=== PATIENT | male | born 1985 | race Two or more races ===

== ENCOUNTER 2020-06-19 16:38 | Inpatient (IN) | payer MEDICAID ==
--- NOTE | 2020-06-19 16:55 | EDM.PDOC ---
ED HPI GENERAL MEDICAL PROBLEM - General Chief Complaint: Cardiovascular Problem Stated Complaint: PASSED OUT Time Seen by Provider: 06/19/20 16:40 Source of Information: Reports: Patient History Limitations: Reports: No Limitations - History of Present Illness INITIAL COMMENTS - FREE TEXT/NARRATIVE: HISTORY AND PHYSICAL: History of present illness: Patient is a 35-year-old male who presents to the emergency room with complaints of syncope prior to arrival. Over the past 2 to 3 days he has had fever and chills. Prior to arrival he felt the sensation of needing to have a bowel movement. He states he felt dizzy and diaphoretic while sitting on the toilet, he asked his to grab him a towel. She states she witnessed him have a syncopal event while sitting on the toilet for 2 to 3 seconds. He did not fall off the toilet or hit his head. He states he had an episode of diarrhea. His called the ambulance to have him evaluated. He currently is asymptomatic but states he feels chilled. Patient denies any headache, change in vision, chest pain, back pain, shortness of breath, abdominal pain, nausea, vomiting, constipation or dysuria. Has not noted any blood in urine or stool. Patient has been eating and drinking appropriately. Review of systems: As per history of present illness and below otherwise all systems reviewed and negative. Past medical history: As per history of present illness and as reviewed below otherwise noncontributory. Surgical history: As per history of present illness and as reviewed below otherwise noncontributory. Social history: See social history for further information Family history: As per history of present illness and as reviewed below otherwise noncontributory. Physical exam: General: Well developed and well nourished. Alert and orientated x 3. Nontoxic in appearance and in no acute distress. Vital signs are stable and have been reviewed by me. Nursing notes were reviewed. HEENT: Atraumatic, normocephalic, pupils equal and reactive bilaterally, negative for conjunctival pallor or scleral icterus, mucous membranes moist, TMs normal bilaterally, throat clear, neck supple, nontender, trachea midline. No drooling or trismus noted. No meningeal signs. No hot potato voice noted. Lungs: Clear to auscultation, breath sounds equal bilaterally, chest nontender. Normal work of breathing, no accessory muscles used. Heart: S1S2, regular rate and rhythm without overt murmur Abdomen: Soft, nondistended, nontender. Negative for masses or hepatosplenomegaly. Negative for costovertebral tenderness. Pelvis: Stable nontender. Skin: Shirt is wet from previously being diaphoretic. Skin is cool, intact without any lesions or rashes noted. Hematologic: No petechiae or purpra. Mucosa appropriate color and normal nail bed color and refill. Extremities: Atraumatic, moves all extremities per self without difficulty or deficits, negative for cords or calf pain. Neurovascular unremarkable. Neuro: Awake, alert, oriented. Cranial nerves II through XII unremarkable. Cerebellum unremarkable. Motor and sensory unremarkable throughout. Exam nonfocal. Psychiatric: Mood and affect are appropriate. Normal thought process. Answering questions appropriately. Notes: While patient has been here in the emergency room he has fluctuations of feeling okay and dizziness. He did get up to try to use the bathroom and felt near syncopal again, he was assisted to the bed. Patient is COVID positive. Chest x-ray and head CT are unremarkable. We discussed if he felt well enough to be discharged home, he states he feels near syncopal when he gets up to move around and does not feel well enough to be discharged home. Dr Espana, hospitalist on- call, was informed of this patient and is agreeable to keeping him for further care and management. Patient is stable in the emergency room. We will continue to monitor. Diagnostics: CBC, CMP, COVID, UA, Head CT, Therapeutics: IV fluids, Meclizine, Tylenol Impression: Syncope COVID-19 Plan: Observation admission with telemetry Definitive disposition and diagnosis as appropriate pending reevaluation and review of above. - Related Data Allergies Allergy/AdvReac Type Severity Reaction Status Date / Time No Known Allergies Allergy Verified 06/19/20 16:50 Home Meds: Home Meds . [No Known Home Meds] 06/19/20 [History] ED ROS GENERAL - Review of Systems Review Of Systems: Comprehensive ROS is negative, except as noted in HPI. ED EXAM, GENERAL - Physical Exam Exam: See Below (See dictation) Course - Vital Signs Last Recorded V/S: Last Vital Signs Temp 100 F 06/19/20 18:42 Pulse 82 06/19/20 19:34 Resp 18 06/19/20 19:34 BP 129/72 06/19/20 19:34 Pulse Ox 96 06/19/20 19:34 - Orders/Labs/Meds Orders: Active Orders 24 hr Category Date Time Status Admission Status [Patient Status] [ADT] Stat ADT 06/19/20 19:38 Ordered EKG Documentation Completion [RC] STAT Care 06/19/20 16:40 Active CORONAVIRUS COVID-19 PCR PHL Stat Lab 06/19/20 18:15 Received UA RFX CLAUDIA AND CULT IF INDIC [URIN] Stat Lab 06/19/20 19:24 Ordered Labs: Laboratory Tests 06/19/20 06/19/20 06/19/20 Range/Units 16:47 16:47 16:47 WBC 6.48 (4.0-11.0) K/uL RBC 5.06 (4.50-5.90) M/uL Hgb 14.0 (13.0-17.0) g/dL Hct 43.4 (38.0-50.0) % MCV 85.8 (80.0-98.0) fL MCH 27.7 (27.0-32.0) pg MCHC 32.3 (31.0-37.0) g/dL RDW Std Deviation 40.7 (28.0-62.0) fl RDW Coeff of Desi 13 (11.0-15.0) % Plt Count 153 (150-400) K/uL MPV 10.40 (7.40-12.00) fL Neut % (Auto) 83.5 H (48.0-80.0) % Lymph % (Auto) 11.4 L (16.0-40.0) % [place] % (Auto) 5.1 (0.0-15.0) % Eos % (Auto) 0.0 (0.0-7.0) % Baso % (Auto) 0.0 (0.0-1.5) % Neut # (Auto) 5.4 (1.4-5.7) K/uL Lymph # (Auto) 0.7 (0.6-2.4) K/uL [place] # (Auto) 0.3 (0.0-0.8) K/uL Eos # (Auto) 0.0 (0.0-0.7) K/uL Baso # (Auto) 0.0 (0.0-0.1) K/uL Nucleated RBC % 0.0 /100WBC Nucleated RBCs # 0 K/uL Lactate 0.9 (0.20-2.00) mmol/L Sodium 135 L (136-148) mmol/L Potassium 3.8 (3.5-5.1) mmol/L Chloride 100 (98-107) mmol/L Carbon Dioxide 26.1 (21.0-32.0) mmol/L BUN 12 (7.0-18.0) mg/dL Creatinine 1.3 (0.8-1.3) mg/dL Est Cr Clr Drug Dosing 88.78 mL/min Estimated GFR (MDRD) > 60.0 ml/min Glucose 106 (74-106) mg/dL Calcium 8.3 L (8.5-10.1) mg/dL Total Bilirubin 0.4 (0.2-1.0) mg/dL AST 41 H (15-37) IU/L ALT 33 (14-63) IU/L Alkaline Phosphatase 53 (46-116) U/L Troponin I < 0.050 (0.000-0.056) ng/mL Total Protein 6.9 (6.4-8.2) g/dL Albumin 3.4 (3.4-5.0) g/dL Globulin 3.5 (2.6-4.0) g/dL Albumin/Globulin Ratio 1.0 (0.9-1.6) SARS CoV-2 RNA Rapid MARTHA (NEGATIVE) 06/19/20 Range/Units 18:15 WBC (4.0-11.0) K/uL RBC (4.50-5.90) M/uL Hgb (13.0-17.0) g/dL Hct (38.0-50.0) % MCV (80.0-98.0) fL MCH (27.0-32.0) pg MCHC (31.0-37.0) g/dL RDW Std Deviation (28.0-62.0) fl RDW Coeff of Desi (11.0-15.0) % Plt Count (150-400) K/uL MPV (7.40-12.00) fL Neut % (Auto) (48.0-80.0) % Lymph % (Auto) (16.0-40.0) % [place] % (Auto) (0.0-15.0) % Eos % (Auto) (0.0-7.0) % Baso % (Auto) (0.0-1.5) % Neut # (Auto) (1.4-5.7) K/uL Lymph # (Auto) (0.6-2.4) K/uL [place] # (Auto) (0.0-0.8) K/uL Eos # (Auto) (0.0-0.7) K/uL Baso # (Auto) (0.0-0.1) K/uL Nucleated RBC % /100WBC Nucleated RBCs # K/uL Lactate (0.20-2.00) mmol/L Sodium (136-148) mmol/L Potassium (3.5-5.1) mmol/L Chloride (98-107) mmol/L Carbon Dioxide (21.0-32.0) mmol/L BUN (7.0-18.0) mg/dL Creatinine (0.8-1.3) mg/dL Est Cr Clr Drug Dosing mL/min Estimated GFR (MDRD) ml/min Glucose (74-106) mg/dL Calcium (8.5-10.1) mg/dL Total Bilirubin (0.2-1.0) mg/dL AST (15-37) IU/L ALT (14-63) IU/L Alkaline Phosphatase (46-116) U/L Troponin I (0.000-0.056) ng/mL Total Protein (6.4-8.2) g/dL Albumin (3.4-5.0) g/dL Globulin (2.6-4.0) g/dL Albumin/Globulin Ratio (0.9-1.6) SARS CoV-2 RNA Rapid MARTHA POSITIVE H (NEGATIVE) Meds: Medications Discontinued Medications Generic Name Dose Route Start Last Admin Trade Name Freq PRN Reason Stop Dose Admin Acetaminophen 1,000 mg 06/19/20 18:01 06/19/20 18:12 Tylenol Extra Strength PO 06/19/20 18:02 1,000 mg ONETIME ONE Administration Sodium Chloride 1,000 mls @ 999 mls/hr 06/19/20 17:40 06/19/20 18:14 Normal Saline IV 06/19/20 18:40 999 mls/hr STAT ONE Administration Meclizine HCl 25 mg 06/19/20 18:01 06/19/20 18:12 Antivert PO 06/19/20 18:02 25 mg ONETIME ONE Administration Departure - Departure Time of Disposition: 18:45 Disposition: Home, Self-Care 01 Clinical Impression: COVID-19 Syncope Qualifiers: Syncope type: unspecified Qualified Code(s): R55 - Syncope and collapse Referrals: Paul Farooq MD [Primary Care Provider] - Forms: ED Department Discharge Sepsis Event Note (ED) - Evaluation Sepsis Screening Result: No Definite Risk - Focused Exam Vital Signs: Vital Signs Temp Temp Pulse Resp BP Pulse Ox 06/19/20 19:34 82 18 129/72 96 06/19/20 18:42 100 F 06/19/20 18:12 100.2 F 06/19/20 18:01 99.2 F 87 130/58 L 93 L 06/19/20 16:47 98.2 F 100 18 94/61 94 L - My Orders Last 24 Hours: My Active Orders 06/19/20 16:40 EKG Documentation Completion [RC] STAT 06/19/20 18:15 CORONAVIRUS COVID-19 PCR PHL Stat 06/19/20 19:24 UA RFX CLAUDIA AND CULT IF INDIC [URIN] Stat 06/19/20 19:38 Admission Status [Patient Status] [ADT] Stat - Assessment/Plan Last 24 Hours: My Active Orders 06/19/20 16:40 EKG Documentation Completion [RC] STAT 06/19/20 18:15 CORONAVIRUS COVID-19 PCR PHL Stat 06/19/20 19:24 UA RFX CLAUDIA AND CULT IF INDIC [URIN] Stat 06/19/20 19:38 Admission Status [Patient Status] [ADT] Stat
[2020-06-19 17:24] LABS: BLOOD UREA NITROGEN,BUN 12 mg/dL (7.0-18.0); CARBON DIOXIDE,CO2 26.1 mmol/L (21.0-32.0); CHLORIDE,CL 100 mmol/L (98-107); GLUCOSE RANDOM 106 mg/dL (74-106); POTASSIUM,K 3.8 mmol/L (3.5-5.1); SODIUM,NA 135 mmol/L (136-148)
[2020-06-19] MEDS ORDERED: Sodium Chloride 0.9% 1,000 ML IV ONE (17:40)
--- NOTE | 2020-06-19 17:42 | PCM.SN.2 ---
#1 Interpretation EKG Date: 06/19/20 Time: 16:53 Rhythm: NSR Rate (Beats/Min): 95 Ear[place]: Normal P-Wave: Present QRS: Normal ST-T: Normal QT: Normal MI/PQ Interval: 130 Comparison: NA - No Prior EKG EKG Interpretation Comments: normal EKG
[2020-06-19] MEDS ORDERED: Acetaminophen 500 MG Tab PO ONE (18:01)
[2020-06-19] MEDS ORDERED: Meclizine 25 MG Tab PO ONE (18:01)
--- NOTE | 2020-06-19 18:02 | CR ---
Indication: Syncopal episode Technique: Chest one view Comparison: None Findings/Impression: Cardiovascular and mediastinum: Heart size and vasculature are normal in caliber and appearance. Mediastinum is within normal limits. Lungs and pleural spaces: Lung volumes are slightly low. No sign of infiltrate or mass. No sign of pleural effusion. No pneumothorax. Bones and soft tissues: No significant findings. Dictated by Eulalia Dietz MD @ Jun 19 2020 6:00PM Signed by Dr. Eulalia Dietz @ Jun 19 2020 6:02PM
--- NOTE | 2020-06-19 19:20 | CT ---
INDICATION: COVID positive, syncopal episode TECHNIQUE: CT head without contrast. COMPARISON: None FINDINGS: CSF spaces: Within normal limits for age. Brain parenchyma: The jang-white differentiation is normal. No sign of mass, hemorrhage, or midline shift. Skull base and calvarium: The visualized paranasal sinuses and mastoid air cells demonstrate no acute or significant findings. The visualized orbits are grossly unremarkable. No skull fractures. IMPRESSION: Unremarkable noncontrast head CT. Please note that all CT scans at this facility use dose modulation, iterative reconstruction, and/or weight-based dosing when appropriate to reduce radiation dose to as low as reasonably achievable. Dictated by Eulalia Dietz MD @ Jun 19 2020 7:11PM Signed by Dr. Eulalia Dietz @ Jun 19 2020 7:17PM
[2020-06-19] MEDS: Sodium Chloride 0.9% 1,000 ML IV SCH (22:30)
[2020-06-19] MEDS ORDERED: Sodium Chloride 0.9% 10 ML Syringe FLUSH PRN (22:35)
--- NOTE | 2020-06-20 03:09 | PCM.HP.2 ---
H&P History of Present Illness - General Date of Service: 06/20/20 Admit Problem/Dx: Admission Diagnosis/Problem Admission Diagnosis/Problem Syncope - History of Present Illness Initial Comments - Free Text/Narative: 35 yo male who presents with three day history of fevers, chills, and malaise. Patient reports nausea and diarrhea. Today while sitting on the toliet he passe out for a few seconds prompting him to go to the ER. He denies falling or hitting his head. He reports a cough but denies any shortness of breath. - Related Data Allergies/Adverse Reactions: Allergies Allergy/AdvReac Type Severity Reaction Status Date / Time No Known Allergies Allergy Verified 06/19/20 16:50 Home Medications: Home Meds . [No Known Home Meds] 06/19/20 [History] Past Medical History - Past Health History Medical/Surgical History: Denies Medical/Surgical History - Past Surgical History Head Surgeries/Procedures: Reports: None Social & Family History - Family History Family Medical History: Noncontributory - Tobacco Use Tobacco Use Status *Q: Never Tobacco User Second Hand Smoke Exposure: No - Recreational Drug Use Recreational Drug Use: No H&P Review of Systems - Review of Systems: Review Of Systems: Comprehensive ROS is negative, except as noted in HPI. Exam - Exam Exam: See Below - Vital Signs Vital Signs: Last Vital Signs Temp 37.2 C 06/20/20 00:00 Pulse 82 06/19/20 19:34 Resp 18 06/20/20 00:00 BP 128/79 06/20/20 00:00 Pulse Ox 94 L 06/20/20 00:00 Weight: 130.997 kg - Exam General: Alert, Oriented HEENT: Mucosa Moist & [place] Lungs: Clear to Auscultation, Normal Respiratory Effort Cardiovascular: Regular Rate, Regular Rhythm GI/Abdominal Exam: Normal Bowel Sounds, Soft, Non-Tender Extremities: Non-Tender, No Pedal Edema - Patient Data Lab Results Last 24 hrs: Laboratory Results - last 24 hr 06/19/20 06/19/20 06/19/20 Range/Units 16:47 16:47 16:47 WBC 6.48 (4.0-11.0) K/uL RBC 5.06 (4.50-5.90) M/uL Hgb 14.0 (13.0-17.0) g/dL Hct 43.4 (38.0-50.0) % MCV 85.8 (80.0-98.0) fL MCH 27.7 (27.0-32.0) pg MCHC 32.3 (31.0-37.0) g/dL RDW Std Deviation 40.7 (28.0-62.0) fl RDW Coeff of Desi 13 (11.0-15.0) % Plt Count 153 (150-400) K/uL MPV 10.40 (7.40-12.00) fL Neut % (Auto) 83.5 H (48.0-80.0) % Lymph % (Auto) 11.4 L (16.0-40.0) % [place] % (Auto) 5.1 (0.0-15.0) % Eos % (Auto) 0.0 (0.0-7.0) % Baso % (Auto) 0.0 (0.0-1.5) % Neut # (Auto) 5.4 (1.4-5.7) K/uL Lymph # (Auto) 0.7 (0.6-2.4) K/uL [place] # (Auto) 0.3 (0.0-0.8) K/uL Eos # (Auto) 0.0 (0.0-0.7) K/uL Baso # (Auto) 0.0 (0.0-0.1) K/uL Nucleated RBC % 0.0 /100WBC Nucleated RBCs # 0 K/uL Lactate 0.9 (0.20-2.00) mmol/L Sodium 135 L (136-148) mmol/L Potassium 3.8 (3.5-5.1) mmol/L Chloride 100 (98-107) mmol/L Carbon Dioxide 26.1 (21.0-32.0) mmol/L BUN 12 (7.0-18.0) mg/dL Creatinine 1.3 (0.8-1.3) mg/dL Est Cr Clr Drug Dosing 88.78 mL/min Estimated GFR (MDRD) > 60.0 ml/min Glucose 106 (74-106) mg/dL Calcium 8.3 L (8.5-10.1) mg/dL Total Bilirubin 0.4 (0.2-1.0) mg/dL AST 41 H (15-37) IU/L ALT 33 (14-63) IU/L Alkaline Phosphatase 53 (46-116) U/L Troponin I < 0.050 (0.000-0.056) ng/mL Total Protein 6.9 (6.4-8.2) g/dL Albumin 3.4 (3.4-5.0) g/dL Globulin 3.5 (2.6-4.0) g/dL Albumin/Globulin Ratio 1.0 (0.9-1.6) Urine Color Urine Appearance Urine pH (5.0-8.0) Ur Specific [place] (1.001-1.035) Urine Protein (NEGATIVE) mg/dL Urine Glucose (UA) (NEGATIVE) mg/dL Urine Ketones (NEGATIVE) mg/dL Urine Occult Blood (NEGATIVE) Urine Nitrite (NEGATIVE) Urine Bilirubin (NEGATIVE) Urine Urobilinogen (<2.0) EU/dL Ur Leukocyte Esterase (NEGATIVE) SARS CoV-2 RNA Rapid MARTHA (NEGATIVE) 06/19/20 06/19/20 Range/Units 18:15 21:50 WBC (4.0-11.0) K/uL RBC (4.50-5.90) M/uL Hgb (13.0-17.0) g/dL Hct (38.0-50.0) % MCV (80.0-98.0) fL MCH (27.0-32.0) pg MCHC (31.0-37.0) g/dL RDW Std Deviation (28.0-62.0) fl RDW Coeff of Desi (11.0-15.0) % Plt Count (150-400) K/uL MPV (7.40-12.00) fL Neut % (Auto) (48.0-80.0) % Lymph % (Auto) (16.0-40.0) % [place] % (Auto) (0.0-15.0) % Eos % (Auto) (0.0-7.0) % Baso % (Auto) (0.0-1.5) % Neut # (Auto) (1.4-5.7) K/uL Lymph # (Auto) (0.6-2.4) K/uL Loving # (Auto) (0.0-0.8) K/uL Eos # (Auto) (0.0-0.7) K/uL Baso # (Auto) (0.0-0.1) K/uL Nucleated RBC % /100WBC Nucleated RBCs # K/uL Lactate (0.20-2.00) mmol/L Sodium (136-148) mmol/L Potassium (3.5-5.1) mmol/L Chloride (98-107) mmol/L Carbon Dioxide (21.0-32.0) mmol/L BUN (7.0-18.0) mg/dL Creatinine (0.8-1.3) mg/dL Est Cr Clr Drug Dosing mL/min Estimated GFR (MDRD) ml/min Glucose (74-106) mg/dL Calcium (8.5-10.1) mg/dL Total Bilirubin (0.2-1.0) mg/dL AST (15-37) IU/L ALT (14-63) IU/L Alkaline Phosphatase (46-116) U/L Troponin I (0.000-0.056) ng/mL Total Protein (6.4-8.2) g/dL Albumin (3.4-5.0) g/dL Globulin (2.6-4.0) g/dL Albumin/Globulin Ratio (0.9-1.6) Urine Color YELLOW Urine Appearance CLEAR Urine pH 6.0 (5.0-8.0) Ur Specific [place] 1.020 (1.001-1.035) Urine Protein NEGATIVE (NEGATIVE) mg/dL Urine Glucose (UA) NEGATIVE (NEGATIVE) mg/dL Urine Ketones 15 H (NEGATIVE) mg/dL Urine Occult Blood NEGATIVE (NEGATIVE) Urine Nitrite NEGATIVE (NEGATIVE) Urine Bilirubin NEGATIVE (NEGATIVE) Urine Urobilinogen 0.2 (<2.0) EU/dL Ur Leukocyte Esterase NEGATIVE (NEGATIVE) SARS CoV-2 RNA Rapid MARTHA POSITIVE H (NEGATIVE) Result Diagrams: 06/21/20 06:17 06/21/20 06:17 Sepsis Event Note - Evaluation Sepsis Screening Result: No Definite Risk - Focused Exam Vital Signs: Vital Signs Temp Temp Pulse Resp BP Pulse Ox 06/20/20 00:00 37.2 C 18 128/79 94 L 06/19/20 21:00 36.6 C 18 101/61 94 L 06/19/20 19:34 82 18 129/72 96 06/19/20 18:42 37.7 C 06/19/20 18:12 37.9 C 06/19/20 18:01 37.3 C 87 130/58 L 93 L 06/19/20 16:47 36.8 C 100 18 94/61 94 L Problem List Initiated/Reviewed/Updated: Yes Orders Last 24hrs: Active Orders 24 hr Category Date Time Status Admission Status [Patient Status] [ADT] Stat ADT 06/19/20 19:38 Active Antiembolic Devices [RC] PER UNIT ROUTINE Care 06/20/20 03:02 Ordered EKG Documentation Completion [RC] STAT Care 06/19/20 16:40 Active Oxygen Therapy [RC] PRN Care 06/20/20 03:02 Ordered Telemetry Monitoring [Cardiac Monitoring] [RC] Q12H Care 06/19/20 20:40 Active Up ad Narcisa [RC] ASDIRECTED Care 06/20/20 03:02 Ordered VTE/DVT Education [RC] PER UNIT ROUTINE Care 06/20/20 03:02 Ordered Vital Signs [RC] Q4H Care 06/19/20 20:00 Active Vital Signs [RC] Q4H Care 06/20/20 03:02 Ordered Regular Diet [DIET] Diet 06/20/20 Breakfast Active BMP [BASIC METABOLIC PANEL,BMP] [CHEM] Routine Lab 06/20/20 05:00 Ordered CBC WITH AUTO DIFF [HEME] Routine Lab 06/20/20 05:00 Ordered CORONAVIRUS COVID-19 PCR PHL Stat Lab 06/19/20 18:15 Received Enoxaparin [Lovenox] Med 06/20/20 03:15 Ordered 40 mg SUBCUT Q24H Sodium Chloride 0.9% [Normal Saline] 1,000 ml Med 06/19/20 21:30 Active IV ASDIRECTED Sodium Chloride 0.9% [Saline Flush] Med 06/19/20 22:35 Active 10 ml FLUSH ASDIRECTED PRN Sequential Compression Device [OM.PC] Per Unit Routine Oth 06/20/20 03:02 Ordered Resuscitation Status Routine Resus Stat 06/20/20 03:02 Ordered Medication Orders Enoxaparin Sodium (Lovenox) 40 mg SUBCUT Q24H [place] Sodium Chloride (Normal Saline) 1,000 mls @ 125 mls/hr IV ASDIRECTED [place] Last Admin: 06/19/20 22:30 Dose: 125 mls/hr Documented by: KALYN Sodium Chloride (Saline Flush) 10 ml FLUSH ASDIRECTED PRN PRN Reason: IV patency Last Admin: 06/19/20 23:14 Dose: 10 ml Documented by: KALYN Assessment/Plan Comment:: 35 yo male admitted for COVID-19, dehydration, and syncope. We will resuscitate appropriately with IV fluids and monitor overnight on telemetry.
[2020-06-20] MEDS: Enoxaparin 40 MG/0.4 ML Syringe SUBCUT SCH (03:35)
[2020-06-20] MEDS ORDERED: Acetaminophen 325 MG Tab PO PRN (04:27)
[2020-06-20] MEDS: Benzonatate 100 MG Cap PO PRN ×3 (04:43→23:14)
[2020-06-20] MEDS: Sodium Chloride 0.9% 1,000 ML IV SCH (04:43)
[2020-06-20 05:43] LABS: BLOOD UREA NITROGEN,BUN 10 mg/dL (7.0-18.0); CARBON DIOXIDE,CO2 26.2 mmol/L (21.0-32.0); CHLORIDE,CL 100 mmol/L (98-107); GLUCOSE RANDOM 100 mg/dL (74-106); POTASSIUM,K 3.7 mmol/L (3.5-5.1); SODIUM,NA 136 mmol/L (136-148)
--- NOTE | 2020-06-20 08:47 | PCM.PN ---
- General Info Date of Service: 06/20/20 Subjective Update: Tolerating oral diet. Ambulated to toilet without difficulty. Reports having fevers, chills and cough. Denies any fainting episodes, SOB, nausea, vomiting or chest pain. - Patient Data Vitals - Most Recent: Last Vital Signs Temp 37.8 C 06/20/20 07:56 Pulse 92 06/20/20 07:56 Resp 18 06/20/20 07:56 BP 113/70 06/20/20 07:56 Pulse Ox 92 L 06/20/20 07:56 Weight - Most Recent: 130.997 kg I&O - Last 24 Hours: Intake & Output 06/19/20 06/20/20 06/20/20 22:59 06:59 14:59 Intake Total 620 Output Total 1240 Balance -620 Lab Results Last 24 Hours: Laboratory Results - last 24 hr 06/19/20 06/19/20 06/19/20 Range/Units 16:47 16:47 16:47 WBC 6.48 (4.0-11.0) K/uL RBC 5.06 (4.50-5.90) M/uL Hgb 14.0 (13.0-17.0) g/dL Hct 43.4 (38.0-50.0) % MCV 85.8 (80.0-98.0) fL MCH 27.7 (27.0-32.0) pg MCHC 32.3 (31.0-37.0) g/dL RDW Std Deviation 40.7 (28.0-62.0) fl RDW Coeff of Desi 13 (11.0-15.0) % Plt Count 153 (150-400) K/uL MPV 10.40 (7.40-12.00) fL Neut % (Auto) 83.5 H (48.0-80.0) % Lymph % (Auto) 11.4 L (16.0-40.0) % Glenn % (Auto) 5.1 (0.0-15.0) % Eos % (Auto) 0.0 (0.0-7.0) % Baso % (Auto) 0.0 (0.0-1.5) % Neut # (Auto) 5.4 (1.4-5.7) K/uL Lymph # (Auto) 0.7 (0.6-2.4) K/uL Glenn # (Auto) 0.3 (0.0-0.8) K/uL Eos # (Auto) 0.0 (0.0-0.7) K/uL Baso # (Auto) 0.0 (0.0-0.1) K/uL Nucleated RBC % 0.0 /100WBC Nucleated RBCs # 0 K/uL Lactate 0.9 (0.20-2.00) mmol/L Sodium 135 L (136-148) mmol/L Potassium 3.8 (3.5-5.1) mmol/L Chloride 100 (98-107) mmol/L Carbon Dioxide 26.1 (21.0-32.0) mmol/L BUN 12 (7.0-18.0) mg/dL Creatinine 1.3 (0.8-1.3) mg/dL Est Cr Clr Drug Dosing 88.78 mL/min Estimated GFR (MDRD) > 60.0 ml/min Glucose 106 (74-106) mg/dL Calcium 8.3 L (8.5-10.1) mg/dL Total Bilirubin 0.4 (0.2-1.0) mg/dL AST 41 H (15-37) IU/L ALT 33 (14-63) IU/L Alkaline Phosphatase 53 (46-116) U/L Troponin I < 0.050 (0.000-0.056) ng/mL Total Protein 6.9 (6.4-8.2) g/dL Albumin 3.4 (3.4-5.0) g/dL Globulin 3.5 (2.6-4.0) g/dL Albumin/Globulin Ratio 1.0 (0.9-1.6) Urine Color Urine Appearance Urine pH (5.0-8.0) Ur Specific [place] (1.001-1.035) Urine Protein (NEGATIVE) mg/dL Urine Glucose (UA) (NEGATIVE) mg/dL Urine Ketones (NEGATIVE) mg/dL Urine Occult Blood (NEGATIVE) Urine Nitrite (NEGATIVE) Urine Bilirubin (NEGATIVE) Urine Urobilinogen (<2.0) EU/dL Ur Leukocyte Esterase (NEGATIVE) SARS CoV-2 RNA Rapid MARTHA (NEGATIVE) 06/19/20 06/19/20 06/20/20 Range/Units 18:15 21:50 05:05 WBC 4.42 (4.0-11.0) K/uL RBC 4.86 (4.50-5.90) M/uL Hgb 13.1 (13.0-17.0) g/dL Hct 41.6 (38.0-50.0) % MCV 85.6 (80.0-98.0) fL MCH 27.0 (27.0-32.0) pg MCHC 31.5 (31.0-37.0) g/dL RDW Std Deviation 40.1 (28.0-62.0) fl RDW Coeff of Desi 13 (11.0-15.0) % Plt Count 166 (150-400) K/uL MPV 10.20 (7.40-12.00) fL Neut % (Auto) 74.7 (48.0-80.0) % Lymph % (Auto) 19.9 (16.0-40.0) % Glenn % (Auto) 5.4 (0.0-15.0) % Eos % (Auto) 0.0 (0.0-7.0) % Baso % (Auto) 0.0 (0.0-1.5) % Neut # (Auto) 3.3 (1.4-5.7) K/uL Lymph # (Auto) 0.9 (0.6-2.4) K/uL Glenn # (Auto) 0.2 (0.0-0.8) K/uL Eos # (Auto) 0.0 (0.0-0.7) K/uL Baso # (Auto) 0.0 (0.0-0.1) K/uL Nucleated RBC % 0.0 /100WBC Nucleated RBCs # 0 K/uL Lactate (0.20-2.00) mmol/L Sodium (136-148) mmol/L Potassium (3.5-5.1) mmol/L Chloride (98-107) mmol/L Carbon Dioxide (21.0-32.0) mmol/L BUN (7.0-18.0) mg/dL Creatinine (0.8-1.3) mg/dL Est Cr Clr Drug Dosing mL/min Estimated GFR (MDRD) ml/min Glucose (74-106) mg/dL Calcium (8.5-10.1) mg/dL Total Bilirubin (0.2-1.0) mg/dL AST (15-37) IU/L ALT (14-63) IU/L Alkaline Phosphatase (46-116) U/L Troponin I (0.000-0.056) ng/mL Total Protein (6.4-8.2) g/dL Albumin (3.4-5.0) g/dL Globulin (2.6-4.0) g/dL Albumin/Globulin Ratio (0.9-1.6) Urine Color YELLOW Urine Appearance CLEAR Urine pH 6.0 (5.0-8.0) Ur Specific [place] 1.020 (1.001-1.035) Urine Protein NEGATIVE (NEGATIVE) mg/dL Urine Glucose (UA) NEGATIVE (NEGATIVE) mg/dL Urine Ketones 15 H (NEGATIVE) mg/dL Urine Occult Blood NEGATIVE (NEGATIVE) Urine Nitrite NEGATIVE (NEGATIVE) Urine Bilirubin NEGATIVE (NEGATIVE) Urine Urobilinogen 0.2 (<2.0) EU/dL Ur Leukocyte Esterase NEGATIVE (NEGATIVE) SARS CoV-2 RNA Rapid MARTHA POSITIVE H (NEGATIVE) 06/20/20 Range/Units 05:05 WBC (4.0-11.0) K/uL RBC (4.50-5.90) M/uL Hgb (13.0-17.0) g/dL Hct (38.0-50.0) % MCV (80.0-98.0) fL MCH (27.0-32.0) pg MCHC (31.0-37.0) g/dL RDW Std Deviation (28.0-62.0) fl RDW Coeff of Desi (11.0-15.0) % Plt Count (150-400) K/uL MPV (7.40-12.00) fL Neut % (Auto) (48.0-80.0) % Lymph % (Auto) (16.0-40.0) % Glenn % (Auto) (0.0-15.0) % Eos % (Auto) (0.0-7.0) % Baso % (Auto) (0.0-1.5) % Neut # (Auto) (1.4-5.7) K/uL Lymph # (Auto) (0.6-2.4) K/uL Glenn # (Auto) (0.0-0.8) K/uL Eos # (Auto) (0.0-0.7) K/uL Baso # (Auto) (0.0-0.1) K/uL Nucleated RBC % /100WBC Nucleated RBCs # K/uL Lactate (0.20-2.00) mmol/L Sodium 136 (136-148) mmol/L Potassium 3.7 (3.5-5.1) mmol/L Chloride 100 (98-107) mmol/L Carbon Dioxide 26.2 (21.0-32.0) mmol/L BUN 10 (7.0-18.0) mg/dL Creatinine 1.2 (0.8-1.3) mg/dL Est Cr Clr Drug Dosing 95.72 mL/min Estimated GFR (MDRD) > 60.0 ml/min Glucose 100 (74-106) mg/dL Calcium 8.0 L (8.5-10.1) mg/dL Total Bilirubin (0.2-1.0) mg/dL AST (15-37) IU/L ALT (14-63) IU/L Alkaline Phosphatase (46-116) U/L Troponin I (0.000-0.056) ng/mL Total Protein (6.4-8.2) g/dL Albumin (3.4-5.0) g/dL Globulin (2.6-4.0) g/dL Albumin/Globulin Ratio (0.9-1.6) Urine Color Urine Appearance Urine pH (5.0-8.0) Ur Specific [place] (1.001-1.035) Urine Protein (NEGATIVE) mg/dL Urine Glucose (UA) (NEGATIVE) mg/dL Urine Ketones (NEGATIVE) mg/dL Urine Occult Blood (NEGATIVE) Urine Nitrite (NEGATIVE) Urine Bilirubin (NEGATIVE) Urine Urobilinogen (<2.0) EU/dL Ur Leukocyte Esterase (NEGATIVE) SARS CoV-2 RNA Rapid MARTHA (NEGATIVE) Med Orders - Current: Current Medications Acetaminophen (Tylenol) 650 mg PO Q4H PRN PRN Reason: Fever Benzonatate (Tessalon Perles) 100 mg PO Q6H PRN PRN Reason: Cough Last Admin: 06/20/20 04:43 Dose: 100 mg Documented by: Enoxaparin Sodium (Lovenox) 40 mg SUBCUT Q24H [facility] Last Admin: 06/20/20 03:35 Dose: 40 mg Documented by: Sodium Chloride (Normal Saline) 1,000 mls @ 125 mls/hr IV ASDIRECTED YOMAIRA Last Admin: 06/20/20 04:43 Dose: 125 mls/hr Documented by: Sodium Chloride (Saline Flush) 10 ml FLUSH ASDIRECTED PRN PRN Reason: IV patency Last Admin: 06/19/20 23:14 Dose: 10 ml Documented by: Discontinued Medications Acetaminophen (Tylenol Extra Strength) 1,000 mg PO ONETIME ONE Stop: 06/19/20 18:02 Last Admin: 06/19/20 18:12 Dose: 1,000 mg Documented by: Acetaminophen (Tylenol) 650 mg PO Q6H PRN PRN Reason: Fever Last Admin: 06/20/20 04:42 Dose: 650 mg Documented by: Sodium Chloride (Normal Saline) 1,000 mls @ 999 mls/hr IV STAT ONE Stop: 06/19/20 18:40 Last Admin: 06/19/20 18:14 Dose: 999 mls/hr Documented by: Meclizine HCl (Antivert) 25 mg PO ONETIME ONE Stop: 06/19/20 18:02 Last Admin: 06/19/20 18:12 Dose: 25 mg Documented by: - Exam General: Alert, Oriented, Cooperative, No Acute Distress Lungs: Clear to Auscultation, Normal Respiratory Effort Cardiovascular: Regular Rate, Regular Rhythm GI/Abdominal Exam: Normal Bowel Sounds, Soft, Non-Tender, No Distention Extremities: Normal Inspection, No Pedal Edema Sepsis Event Note - Evaluation Sepsis Screening Result: No Definite Risk - Focused Exam Vital Signs: Vital Signs Temp Temp Pulse Resp BP Pulse Ox Pulse Ox 06/20/20 07:56 37.8 C 92 18 113/70 92 L 06/20/20 04:42 38.3 C H 06/20/20 04:00 38.3 C H 18 129/67 95 06/20/20 03:02 94 L 06/20/20 00:00 37.2 C 18 128/79 94 L 06/19/20 21:00 36.6 C 18 101/61 94 L - Problem List & Annotations (1) Syncope SNOMED Code(s): 563981719 Code(s): R55 - SYNCOPE AND COLLAPSE Status: Acute Current Visit: Yes Qualifiers: Syncope type: unspecified Qualified Code(s): R55 - Syncope and collapse (2) COVID-19 SNOMED Code(s): 723106227 Code(s): U07.1 - COVID-19 Status: Acute Current Visit: Yes - Problem List Review Problem List Initiated/Reviewed/Updated: Yes - My Orders Last 24 Hours: My Active Orders 06/20/20 08:22 Acetaminophen [TylenoL] 650 mg PO Q4H PRN - Plan Plan:: Assessment and Plan: 1. Syncope: - Patient on telemetry and there were no reported events overnight. Will discontinue IV NS and encourage PO intake. - CT head negative. EKG unremarkable. 2. COVID19 positive: - CXR negative. Patient on room air and denies any SOB. Reports mild cough. Will order d-dimer and if elevated will order CT chest angio. Will start dexamethasone 6 mg PO qd. 3. DVT prophylaxis: - SCD's.
[2020-06-20] MEDS: Acetaminophen 325 MG Tab PO PRN ×2 (10:14→17:50)
[2020-06-20] MEDS: Dexamethasone 4 MG Tab PO SCH (10:19)
[2020-06-20] MEDS: Pantoprazole 40 MG Tab.CR PO SCH (12:13)
[2020-06-20] MEDS ORDERED: Iopamidol 755 MG/ML 500 ML Multipack Bottle IVPUSH ONE (13:04)
--- NOTE | 2020-06-20 13:07 | CT ---
Indication: Hypoxia, naqvi virus 19 infection Technique: Volumetric multidetector CT images of the chest were obtained after the administration of IV contrast. 100 cc Isovue 370 Comparison: None available. Findings: The thoracic inlet and thyroid gland are unremarkable. The thoracic aorta is nonaneurysmal. There is no central filling defect to suggest pulmonary embolism. There are enlarged mediastinal and hilar lymph nodes appreciated likely reactive in nature. There is no axillary adenopathy. There is central bronchial thickening predominantly within the lower lobe bronchi. Extensive patchy ground-glass and consolidative airspace opacities throughout the bilateral hemithoraces are appreciated predominantly in the lower lobes likely representing multifocal atypical infiltrates. There is no evidence of pulmonary mass or suspicious pulmonary nodule. The partially visualized upper abdominal viscera are within normal limits. The thoracic vertebral bodies are grossly maintained without evidence of straightening of the normal thoracic kyphosis. Impression: Extensive patchy ground-glass opacities of the bilateral hemithoraces consistent with atypical viral pneumonitis changes. Reactive mediastinal and hilar lymph nodes are appreciated. No evidence of pulmonary embolus. Please note that all CT scans at this facility use dose modulation, iterative reconstruction, and/or weight-based dosing when appropriate to reduce radiation dose to as low as reasonably achievable. Dictated by Art Bolden MD @ Jun 20 2020 12:59PM Signed by Dr. Art Bolden @ Jun 20 2020 1:05PM
[2020-06-20] MEDS ORDERED: REMDESIVIR 200 MG in Sodium Chloride 0.9% 250 ML IV ONE (13:41)
[2020-06-21] MEDS: Enoxaparin 40 MG/0.4 ML Syringe SUBCUT SCH (03:02)
[2020-06-21 07:07] LABS: BLOOD UREA NITROGEN,BUN 12 mg/dL (7.0-18.0); CARBON DIOXIDE,CO2 26.9 mmol/L (21.0-32.0); CHLORIDE,CL 101 mmol/L (98-107); GLUCOSE RANDOM 106 mg/dL (74-106); POTASSIUM,K 4.1 mmol/L (3.5-5.1); SODIUM,NA 137 mmol/L (136-148)
--- NOTE | 2020-06-21 08:40 | PCM.PN ---
- General Info Date of Service: 06/21/20 Subjective Update: Febrile yesterday evening. Reports breathing feels a bit better today and still has a cough. Ambulated around room yesterday and denied dizziness. - Patient Data Vitals - Most Recent: Last Vital Signs Temp 36.9 C 06/21/20 03:06 Pulse 95 06/20/20 12:14 Resp 20 06/21/20 03:06 BP 133/85 06/21/20 03:06 Pulse Ox 93 L 06/21/20 03:06 Weight - Most Recent: 132.8 kg I&O - Last 24 Hours: Intake & Output 06/20/20 06/21/20 06/21/20 22:59 06:59 14:59 Intake Total 1500 1200 Output Total 500 980 Balance 1000 220 Lab Results Last 24 Hours: Laboratory Results - last 24 hr 06/20/20 06/20/20 06/21/20 Range/Units 10:32 16:25 06:17 WBC 5.46 (4.0-11.0) K/uL RBC 4.98 (4.50-5.90) M/uL Hgb 13.8 (13.0-17.0) g/dL Hct 42.3 (38.0-50.0) % MCV 84.9 (80.0-98.0) fL MCH 27.7 (27.0-32.0) pg MCHC 32.6 (31.0-37.0) g/dL RDW Std Deviation 39.4 (28.0-62.0) fl RDW Coeff of Desi 13 (11.0-15.0) % Plt Count 183 (150-400) K/uL MPV 9.80 (7.40-12.00) fL Neut % (Auto) 75.7 (48.0-80.0) % Lymph % (Auto) 18.3 (16.0-40.0) % [place] % (Auto) 6.0 (0.0-15.0) % Eos % (Auto) 0.0 (0.0-7.0) % Baso % (Auto) 0.0 (0.0-1.5) % Neut # (Auto) 4.1 (1.4-5.7) K/uL Lymph # (Auto) 1.0 (0.6-2.4) K/uL [place] # (Auto) 0.3 (0.0-0.8) K/uL Eos # (Auto) 0.0 (0.0-0.7) K/uL Baso # (Auto) 0.0 (0.0-0.1) K/uL Nucleated RBC % 0.0 /100WBC Nucleated RBCs # 0 K/uL D-Dimer, Quantitative 0.66 H (0.0-0.50) mg/L FEU Sodium (136-148) mmol/L Potassium (3.5-5.1) mmol/L Chloride (98-107) mmol/L Carbon Dioxide (21.0-32.0) mmol/L BUN (7.0-18.0) mg/dL Creatinine (0.8-1.3) mg/dL Est Cr Clr Drug Dosing mL/min Estimated GFR (MDRD) ml/min Glucose (74-106) mg/dL Calcium (8.5-10.1) mg/dL Total Bilirubin (0.2-1.0) mg/dL AST (15-37) IU/L ALT (14-63) IU/L Alkaline Phosphatase (46-116) U/L Total Protein (6.4-8.2) g/dL Albumin (3.4-5.0) g/dL Globulin (2.6-4.0) g/dL Albumin/Globulin Ratio (0.9-1.6) Blood Type B POSITIVE Antibody Screen NEGATIVE 06/21/20 Range/Units 06:17 WBC (4.0-11.0) K/uL RBC (4.50-5.90) M/uL Hgb (13.0-17.0) g/dL Hct (38.0-50.0) % MCV (80.0-98.0) fL MCH (27.0-32.0) pg MCHC (31.0-37.0) g/dL RDW Std Deviation (28.0-62.0) fl RDW Coeff of Desi (11.0-15.0) % Plt Count (150-400) K/uL MPV (7.40-12.00) fL Neut % (Auto) (48.0-80.0) % Lymph % (Auto) (16.0-40.0) % [place] % (Auto) (0.0-15.0) % Eos % (Auto) (0.0-7.0) % Baso % (Auto) (0.0-1.5) % Neut # (Auto) (1.4-5.7) K/uL Lymph # (Auto) (0.6-2.4) K/uL [place] # (Auto) (0.0-0.8) K/uL Eos # (Auto) (0.0-0.7) K/uL Baso # (Auto) (0.0-0.1) K/uL Nucleated RBC % /100WBC Nucleated RBCs # K/uL D-Dimer, Quantitative (0.0-0.50) mg/L FEU Sodium 137 (136-148) mmol/L Potassium 4.1 (3.5-5.1) mmol/L Chloride 101 (98-107) mmol/L Carbon Dioxide 26.9 (21.0-32.0) mmol/L BUN 12 (7.0-18.0) mg/dL Creatinine 0.9 (0.8-1.3) mg/dL Est Cr Clr Drug Dosing 127.62 mL/min Estimated GFR (MDRD) > 60.0 ml/min Glucose 106 (74-106) mg/dL Calcium 8.6 (8.5-10.1) mg/dL Total Bilirubin 0.3 (0.2-1.0) mg/dL AST 28 (15-37) IU/L ALT 29 (14-63) IU/L Alkaline Phosphatase 49 (46-116) U/L Total Protein 6.9 (6.4-8.2) g/dL Albumin 3.0 L (3.4-5.0) g/dL Globulin 3.9 (2.6-4.0) g/dL Albumin/Globulin Ratio 0.8 L (0.9-1.6) Blood Type Antibody Screen Anatoly Results Last 24 Hours: Microbiology 06/20/20 10:45 Influenza Type A Antigen Screen - Final Nasopharyngeal Swab NEGATIVE INFLUENZA A VIRUS AG REFERENCE RANGE: NEGATIVE Influenza Type B Antigen Screen - Final NEGATIVE INFLUENZA B VIRUS AG REFERENCE RANGE: NEGATIVE Med Orders - Current: Current Medications Acetaminophen (Tylenol) 650 mg PO Q4H PRN PRN Reason: Fever Last Admin: 06/20/20 17:50 Dose: 650 mg Documented by: Albuterol/Ipratropium (Combivent Respimat) 0 gm INH Q6H PRN PRN Reason: Dyspnea Benzonatate (Tessalon Perles) 100 mg PO Q6H PRN PRN Reason: Cough Last Admin: 06/20/20 23:14 Dose: 100 mg Documented by: Dexamethasone (Dexamethasone) 6 mg PO DAILY [facility] Last Admin: 06/20/20 10:19 Dose: 6 mg Documented by: Enoxaparin Sodium (Lovenox) 40 mg SUBCUT Q24H [facility] Last Admin: 06/21/20 03:02 Dose: 40 mg Documented by: Guaifenesin (Mucus Relief) 400 mg PO Q4H PRN PRN Reason: Cough Last Admin: 06/21/20 03:02 Dose: 400 mg Documented by: Remdesivir 100 mg/ Sodium (Chloride) 100 mls @ 100 mls/hr IV Q24H [facility] Stop: 06/24/20 14:44 Pantoprazole Sodium (Protonix) 40 mg PO DAILY [facility] Last Admin: 06/20/20 12:13 Dose: 40 mg Documented by: Sodium Chloride (Saline Flush) 10 ml FLUSH ASDIRECTED PRN PRN Reason: IV patency Last Admin: 06/19/20 23:14 Dose: 10 ml Documented by: Discontinued Medications Acetaminophen (Tylenol Extra Strength) 1,000 mg PO ONETIME ONE Stop: 06/19/20 18:02 Last Admin: 06/19/20 18:12 Dose: 1,000 mg Documented by: Acetaminophen (Tylenol) 650 mg PO Q6H PRN PRN Reason: Fever Last Admin: 06/20/20 04:42 Dose: 650 mg Documented by: Sodium Chloride (Normal Saline) 1,000 mls @ 999 mls/hr IV STAT ONE Stop: 06/19/20 18:40 Last Admin: 06/19/20 18:14 Dose: 999 mls/hr Documented by: Sodium Chloride (Normal Saline) 1,000 mls @ 125 mls/hr IV ASDIRECTED [facility] Last Admin: 06/20/20 04:43 Dose: 125 mls/hr Documented by: Remdesivir 200 mg/ Sodium (Chloride) 250 mls @ 250 mls/hr IV ONETIME ONE Stop: 06/20/20 13:42 Last Admin: 06/20/20 15:11 Dose: 250 mls/hr Documented by: Iopamidol (Isovue Multipack-370 (76%)) 100 ml IVPUSH ONETIME ONE Stop: 06/20/20 13:05 Last Admin: 06/20/20 13:04 Dose: 100 ml Documented by: Meclizine HCl (Antivert) 25 mg PO ONETIME ONE Stop: 06/19/20 18:02 Last Admin: 06/19/20 18:12 Dose: 25 mg Documented by: - Exam General: Alert, Oriented, Cooperative, No Acute Distress Lungs: Normal Respiratory Effort, Other (diminshed breath sounds in bases b/l) Cardiovascular: Regular Rate, Regular Rhythm GI/Abdominal Exam: Normal Bowel Sounds, Soft, Non-Tender, No Distention Extremities: Normal Inspection, No Pedal Edema Sepsis Event Note - Evaluation Sepsis Screening Result: No Definite Risk - Focused Exam Vital Signs: Vital Signs Temp Resp BP Pulse Ox 06/21/20 03:06 36.9 C 20 133/85 93 L 06/20/20 23:15 36.6 C 18 115/76 94 L 06/20/20 21:45 36.3 C 18 125/70 93 L - Problem List & Annotations (1) Syncope SNOMED Code(s): 744799955 Code(s): R55 - SYNCOPE AND COLLAPSE Status: Acute Current Visit: Yes Qualifiers: Syncope type: unspecified Qualified Code(s): R55 - Syncope and collapse (2) COVID-19 SNOMED Code(s): 879378590 Code(s): U07.1 - COVID-19 Status: Acute Current Visit: Yes - Problem List Review Problem List Initiated/Reviewed/Updated: Yes - My Orders Last 24 Hours: My Active Orders 06/20/20 08:22 Acetaminophen [TylenoL] 650 mg PO Q4H PRN 06/20/20 11:15 Pantoprazole [ProTONIX] 40 mg PO DAILY 06/20/20 11:51 guaiFENesin [Mucus Relief] 400 mg PO Q4H PRN 06/20/20 11:52 Albuterol/Ipratropium [Combivent Respimat] See Dose Instructions INH Q6H PRN 06/20/20 11:53 RT Post Treatment Assessment [RC] Click to Edit RT Pre-Treatment Assessment [RC] Click to Edit 06/20/20 13:46 Admission Status [Patient Status] [ADT] Routine 06/20/20 16:25 FRESH FROZEN PLASMA [BBK] Routine 06/21/20 13:45 Remdesivir (Eua) [Remdesivir (EUA)] 100 mg Sodium Chloride 0.9% [Normal Saline] 100 ml IV Q24H - Plan Plan:: Assessment and Plan: 1. Acute hypoxic respiratory failure secondary to COVID-19: - Continue supplemental oxygen prn to maintain O2 sat > 92%, Combivent prn, dexamethasone 6 mg qd, PPI and Remdesivir. - Patient given fact sheet for convalescent plasma EAU, risks were explained and he consented to treatment if need be. - CT angio negative for PE but showed b/l ground glass opacities. 2. Syncopal episode: - Patient on telemetry with no reported events overnight. - CT head negative. EKG unremarkable. 3. DVT prophylaxis: - Lovenox 40 mg subcut qd.
[2020-06-21] MEDS: Pantoprazole 40 MG Tab.CR PO SCH (09:16)
[2020-06-21] MEDS: Dexamethasone 4 MG Tab PO SCH (09:16)
[2020-06-21] MEDS: REMDESIVIR 100 MG in Sodium Chloride 0.9% 100 ML IV SCH (14:25)
[2020-06-22] MEDS: Enoxaparin 40 MG/0.4 ML Syringe SUBCUT SCH (02:30)
[2020-06-22] MEDS: Benzonatate 100 MG Cap PO PRN ×2 (02:31→14:55)
[2020-06-22 06:00] LABS: BLOOD UREA NITROGEN,BUN 17 mg/dL (7.0-18.0); CARBON DIOXIDE,CO2 27.3 mmol/L (21.0-32.0); CHLORIDE,CL 100 mmol/L (98-107); GLUCOSE RANDOM 105 mg/dL (74-106); POTASSIUM,K 4.2 mmol/L (3.5-5.1); SODIUM,NA 136 mmol/L (136-148)
--- NOTE | 2020-06-22 08:39 | PCM.PN ---
- General Info Date of Service: 06/22/20 Subjective Update: Reports feeling fatigued, short of breath and having cough. No fevers overnight. Reports not having much of an appetite. - Patient Data Vitals - Most Recent: Last Vital Signs Temp 37.2 C 06/22/20 04:00 Pulse 87 06/22/20 04:00 Resp 15 06/22/20 04:00 BP 120/66 06/22/20 04:00 Pulse Ox 94 L 06/22/20 06:11 Weight - Most Recent: 130.997 kg I&O - Last 24 Hours: Intake & Output 06/21/20 06/22/20 06/22/20 22:59 06:59 14:59 Intake Total 500 1200 Output Total 400 Balance 500 800 Lab Results Last 24 Hours: Laboratory Results - last 24 hr 06/19/20 06/22/20 06/22/20 Range/Units 18:15 05:30 05:30 WBC 7.33 (4.0-11.0) K/uL RBC 4.90 (4.50-5.90) M/uL Hgb 13.6 (13.0-17.0) g/dL Hct 41.6 (38.0-50.0) % MCV 84.9 (80.0-98.0) fL MCH 27.8 (27.0-32.0) pg MCHC 32.7 (31.0-37.0) g/dL RDW Std Deviation 39.8 (28.0-62.0) fl RDW Coeff of Desi 13 (11.0-15.0) % Plt Count 240 (150-400) K/uL MPV 9.80 (7.40-12.00) fL Neut % (Auto) 80.4 H (48.0-80.0) % Lymph % (Auto) 13.4 L (16.0-40.0) % Power % (Auto) 6.1 (0.0-15.0) % Eos % (Auto) 0.0 (0.0-7.0) % Baso % (Auto) 0.1 (0.0-1.5) % Neut # (Auto) 5.9 H (1.4-5.7) K/uL Lymph # (Auto) 1.0 (0.6-2.4) K/uL Power # (Auto) 0.5 (0.0-0.8) K/uL Eos # (Auto) 0.0 (0.0-0.7) K/uL Baso # (Auto) 0.0 (0.0-0.1) K/uL Nucleated RBC % 0.0 /100WBC Nucleated RBCs # 0 K/uL Sodium 136 (136-148) mmol/L Potassium 4.2 (3.5-5.1) mmol/L Chloride 100 (98-107) mmol/L Carbon Dioxide 27.3 (21.0-32.0) mmol/L BUN 17 (7.0-18.0) mg/dL Creatinine 1.1 (0.8-1.3) mg/dL Est Cr Clr Drug Dosing 104.42 mL/min Estimated GFR (MDRD) > 60.0 ml/min Glucose 105 (74-106) mg/dL Calcium 8.7 (8.5-10.1) mg/dL Total Bilirubin 0.3 (0.2-1.0) mg/dL AST 30 (15-37) IU/L ALT 25 (14-63) IU/L Alkaline Phosphatase 51 (46-116) U/L Total Protein 6.9 (6.4-8.2) g/dL Albumin 3.0 L (3.4-5.0) g/dL Globulin 3.9 (2.6-4.0) g/dL Albumin/Globulin Ratio 0.8 L (0.9-1.6) SARS-CoV-2 (PCR) DETECTED H (NOT DETECT) Med Orders - Current: Current Medications Acetaminophen (Tylenol) 650 mg PO Q4H PRN PRN Reason: Fever Last Admin: 06/20/20 17:50 Dose: 650 mg Documented by: Albuterol/Ipratropium (Combivent Respimat) 0 gm INH Q6H PRN PRN Reason: Dyspnea Benzonatate (Tessalon Perles) 100 mg PO Q6H PRN PRN Reason: Cough Last Admin: 06/22/20 02:31 Dose: 100 mg Documented by: Dexamethasone (Dexamethasone) 6 mg PO DAILY [facility] Last Admin: 06/21/20 09:16 Dose: 6 mg Documented by: Enoxaparin Sodium (Lovenox) 40 mg SUBCUT Q24H [facility] Last Admin: 06/22/20 02:30 Dose: 40 mg Documented by: Guaifenesin (Mucus Relief) 400 mg PO Q4H PRN PRN Reason: Cough Last Admin: 06/22/20 05:54 Dose: 400 mg Documented by: Remdesivir 100 mg/ Sodium (Chloride) 100 mls @ 100 mls/hr IV Q24H [facility] Stop: 06/24/20 14:44 Last Admin: 06/21/20 14:25 Dose: 100 mls/hr Documented by: Pantoprazole Sodium (Protonix) 40 mg PO DAILY [facility] Last Admin: 06/21/20 09:16 Dose: 40 mg Documented by: Sodium Chloride (Saline Flush) 10 ml FLUSH ASDIRECTED PRN PRN Reason: IV patency Last Admin: 06/19/20 23:14 Dose: 10 ml Documented by: Discontinued Medications Acetaminophen (Tylenol Extra Strength) 1,000 mg PO ONETIME ONE Stop: 06/19/20 18:02 Last Admin: 06/19/20 18:12 Dose: 1,000 mg Documented by: Acetaminophen (Tylenol) 650 mg PO Q6H PRN PRN Reason: Fever Last Admin: 06/20/20 04:42 Dose: 650 mg Documented by: Sodium Chloride (Normal Saline) 1,000 mls @ 999 mls/hr IV STAT ONE Stop: 06/19/20 18:40 Last Admin: 06/19/20 18:14 Dose: 999 mls/hr Documented by: Sodium Chloride (Normal Saline) 1,000 mls @ 125 mls/hr IV ASDIRECTED [facility] Last Admin: 06/20/20 04:43 Dose: 125 mls/hr Documented by: Remdesivir 200 mg/ Sodium (Chloride) 250 mls @ 250 mls/hr IV ONETIME ONE Stop: 06/20/20 13:42 Last Admin: 06/20/20 15:11 Dose: 250 mls/hr Documented by: Iopamidol (Isovue Multipack-370 (76%)) 100 ml IVPUSH ONETIME ONE Stop: 06/20/20 13:05 Last Admin: 06/20/20 13:04 Dose: 100 ml Documented by: Meclizine HCl (Antivert) 25 mg PO ONETIME ONE Stop: 06/19/20 18:02 Last Admin: 06/19/20 18:12 Dose: 25 mg Documented by: - Exam General: Alert, Oriented, Cooperative, No Acute Distress Lungs: Clear to Auscultation, Normal Respiratory Effort Cardiovascular: Regular Rate, Regular Rhythm GI/Abdominal Exam: Normal Bowel Sounds, Soft, Non-Tender, No Abnormal Bruit Extremities: Normal Inspection, No Pedal Edema Sepsis Event Note - Evaluation Sepsis Screening Result: No Definite Risk - Focused Exam Vital Signs: Vital Signs Temp Pulse Resp BP Pulse Ox Pulse Ox 06/22/20 06:11 94 L 06/22/20 04:00 37.2 C 87 15 120/66 94 L 06/21/20 23:13 36.7 C 81 15 115/55 L 93 L 06/21/20 21:00 36.9 C 76 16 106/56 L 93 L - Problem List & Annotations (1) COVID-19 SNOMED Code(s): 417380748 Code(s): U07.1 - COVID-19 Status: Acute Current Visit: Yes (2) Syncope SNOMED Code(s): 122869552 Code(s): R55 - SYNCOPE AND COLLAPSE Status: Acute Current Visit: Yes Qualifiers: Syncope type: unspecified Qualified Code(s): R55 - Syncope and collapse - Problem List Review Problem List Initiated/Reviewed/Updated: Yes - My Orders Last 24 Hours: My Active Orders 06/21/20 13:45 Remdesivir (Eua) [Remdesivir (EUA)] 100 mg Sodium Chloride 0.9% [Normal Saline] 100 ml IV Q24H - Plan Plan:: Assessment and Plan: 1. Acute hypoxic respiratory failure secondary to COVID-19: - Will continue supplemental oxygen prn and wean as appropriate. Continue Combivent prn, dexamethasone 6 mg qd, PPI and Remdesivir. - Patient given fact sheet for convalescent plasma EAU, risks were explained and he consented to treatment if need be. - CT angio negative for PE but showed b/l ground glass opacities. 2. Syncopal episode: - Patient on telemetry. - CT head negative. EKG unremarkable. 3. DVT prophylaxis: - Lovenox 40 mg subcut qd.
[2020-06-22] MEDS: Pantoprazole 40 MG Tab.CR PO SCH (09:55)
[2020-06-22] MEDS: Dexamethasone 4 MG Tab PO SCH (09:55)
[2020-06-22] MEDS: Albuterol/Ipratropium 4 GM Inhalation Spray INH PRN ×2 (10:29→22:34)
[2020-06-22] MEDS: REMDESIVIR 100 MG in Sodium Chloride 0.9% 100 ML IV SCH (14:42)
[2020-06-23] MEDS: Enoxaparin 40 MG/0.4 ML Syringe SUBCUT SCH (04:08)
[2020-06-23] MEDS: Benzonatate 100 MG Cap PO PRN ×2 (04:09→19:52)
[2020-06-23 07:09] LABS: BLOOD UREA NITROGEN,BUN 16 mg/dL (7.0-18.0); CARBON DIOXIDE,CO2 25.2 mmol/L (21.0-32.0); CHLORIDE,CL 100 mmol/L (98-107); GLUCOSE RANDOM 116 mg/dL (74-106); POTASSIUM,K 3.9 mmol/L (3.5-5.1); SODIUM,NA 134 mmol/L (136-148)
--- NOTE | 2020-06-23 08:19 | PCM.PN ---
- General Info Date of Service: 06/23/20 Subjective Update: Reports SOB and cough is a bit better today. Tolerating oral diet and having bowel movements. - Patient Data Vitals - Most Recent: Last Vital Signs Temp 37.6 C 06/23/20 04:07 Pulse 76 06/23/20 04:07 Resp 18 06/23/20 04:07 BP 114/74 06/23/20 04:07 Pulse Ox 91 L 06/23/20 04:07 Weight - Most Recent: 130.997 kg I&O - Last 24 Hours: Intake & Output 06/22/20 06/23/20 06/23/20 22:59 06:59 14:59 Intake Total 480 800 Output Total 725 600 Balance -245 200 Lab Results Last 24 Hours: Laboratory Results - last 24 hr 06/23/20 06/23/20 Range/Units 06:18 06:18 WBC 6.86 (4.0-11.0) K/uL RBC 4.95 (4.50-5.90) M/uL Hgb 13.9 (13.0-17.0) g/dL Hct 42.0 (38.0-50.0) % MCV 84.8 (80.0-98.0) fL MCH 28.1 (27.0-32.0) pg MCHC 33.1 (31.0-37.0) g/dL RDW Std Deviation 39.5 (28.0-62.0) fl RDW Coeff of Desi 13 (11.0-15.0) % Plt Count 273 (150-400) K/uL MPV 10.00 (7.40-12.00) fL Neut % (Auto) 75.3 (48.0-80.0) % Lymph % (Auto) 15.6 L (16.0-40.0) % Kay % (Auto) 9.0 (0.0-15.0) % Eos % (Auto) 0.0 (0.0-7.0) % Baso % (Auto) 0.1 (0.0-1.5) % Neut # (Auto) 5.2 (1.4-5.7) K/uL Lymph # (Auto) 1.1 (0.6-2.4) K/uL Kay # (Auto) 0.6 (0.0-0.8) K/uL Eos # (Auto) 0.0 (0.0-0.7) K/uL Baso # (Auto) 0.0 (0.0-0.1) K/uL Nucleated RBC % 0.0 /100WBC Nucleated RBCs # 0 K/uL Sodium 134 L (136-148) mmol/L Potassium 3.9 (3.5-5.1) mmol/L Chloride 100 (98-107) mmol/L Carbon Dioxide 25.2 (21.0-32.0) mmol/L BUN 16 (7.0-18.0) mg/dL Creatinine 1.0 (0.8-1.3) mg/dL Est Cr Clr Drug Dosing 114.86 mL/min Estimated GFR (MDRD) > 60.0 ml/min Glucose 116 H (74-106) mg/dL Calcium 8.6 (8.5-10.1) mg/dL Total Bilirubin 0.3 (0.2-1.0) mg/dL AST 36 (15-37) IU/L ALT 41 (14-63) IU/L Alkaline Phosphatase 55 (46-116) U/L Total Protein 7.0 (6.4-8.2) g/dL Albumin 3.0 L (3.4-5.0) g/dL Globulin 4.0 (2.6-4.0) g/dL Albumin/Globulin Ratio 0.8 L (0.9-1.6) Med Orders - Current: Current Medications Acetaminophen (Tylenol) 650 mg PO Q4H PRN PRN Reason: Fever Last Admin: 06/20/20 17:50 Dose: 650 mg Documented by: Albuterol/Ipratropium (Combivent Respimat) 0 gm INH Q6H PRN PRN Reason: Dyspnea Last Admin: 06/22/20 22:34 Dose: 1 puff Documented by: Benzonatate (Tessalon Perles) 100 mg PO Q6H PRN PRN Reason: Cough Last Admin: 06/23/20 04:09 Dose: 100 mg Documented by: Dexamethasone (Dexamethasone) 6 mg PO DAILY [facility] Last Admin: 06/22/20 09:55 Dose: 6 mg Documented by: Enoxaparin Sodium (Lovenox) 40 mg SUBCUT Q24H [facility] Last Admin: 06/23/20 04:08 Dose: 40 mg Documented by: Guaifenesin (Mucus Relief) 400 mg PO Q4H PRN PRN Reason: Cough Last Admin: 06/22/20 22:34 Dose: 400 mg Documented by: Remdesivir 100 mg/ Sodium (Chloride) 100 mls @ 100 mls/hr IV Q24H [facility] Stop: 06/24/20 14:44 Last Admin: 06/22/20 14:42 Dose: 100 mls/hr Documented by: Pantoprazole Sodium (Protonix) 40 mg PO DAILY [facility] Last Admin: 06/22/20 09:55 Dose: 40 mg Documented by: Sodium Chloride (Saline Flush) 10 ml FLUSH ASDIRECTED PRN PRN Reason: IV patency Last Admin: 06/19/20 23:14 Dose: 10 ml Documented by: Discontinued Medications Acetaminophen (Tylenol Extra Strength) 1,000 mg PO ONETIME ONE Stop: 06/19/20 18:02 Last Admin: 06/19/20 18:12 Dose: 1,000 mg Documented by: Acetaminophen (Tylenol) 650 mg PO Q6H PRN PRN Reason: Fever Last Admin: 06/20/20 04:42 Dose: 650 mg Documented by: Sodium Chloride (Normal Saline) 1,000 mls @ 999 mls/hr IV STAT ONE Stop: 06/19/20 18:40 Last Admin: 06/19/20 18:14 Dose: 999 mls/hr Documented by: Sodium Chloride (Normal Saline) 1,000 mls @ 125 mls/hr IV ASDIRECTED [facility] Last Admin: 06/20/20 04:43 Dose: 125 mls/hr Documented by: Remdesivir 200 mg/ Sodium (Chloride) 250 mls @ 250 mls/hr IV ONETIME ONE Stop: 06/20/20 13:42 Last Admin: 06/20/20 15:11 Dose: 250 mls/hr Documented by: Iopamidol (Isovue Multipack-370 (76%)) 100 ml IVPUSH ONETIME ONE Stop: 06/20/20 13:05 Last Admin: 06/20/20 13:04 Dose: 100 ml Documented by: Meclizine HCl (Antivert) 25 mg PO ONETIME ONE Stop: 06/19/20 18:02 Last Admin: 06/19/20 18:12 Dose: 25 mg Documented by: - Exam General: Alert, Oriented, Cooperative, No Acute Distress Lungs: Normal Respiratory Effort, Other (mild crackles in bases b/l) Cardiovascular: Regular Rate, Regular Rhythm GI/Abdominal Exam: Normal Bowel Sounds, Soft, Non-Tender, No Distention Extremities: Normal Inspection, No Pedal Edema Sepsis Event Note - Evaluation Sepsis Screening Result: No Definite Risk - Focused Exam Vital Signs: Vital Signs Temp Pulse Resp BP Pulse Ox 06/23/20 04:07 37.6 C 76 18 114/74 91 L 06/22/20 22:36 36.3 C 71 18 118/69 92 L 06/22/20 20:30 36.5 C 79 18 149/56 H 93 L - Problem List & Annotations (1) COVID-19 SNOMED Code(s): 691527729 Code(s): U07.1 - COVID-19 Status: Acute Current Visit: Yes (2) Syncope SNOMED Code(s): 258887260 Code(s): R55 - SYNCOPE AND COLLAPSE Status: Acute Current Visit: Yes Qualifiers: Syncope type: unspecified Qualified Code(s): R55 - Syncope and collapse - Problem List Review Problem List Initiated/Reviewed/Updated: Yes - Plan Plan:: Assessment and Plan: 1. Acute hypoxic respiratory failure secondary to COVID-19: - Continue supplemental oxygen prn, wean as appropriate, Combivent prn, dexamethasone 6 mg qd, PPI and Remdesivir. - Patient given fact sheet for convalescent plasma EAU, risks were explained and he consented to treatment if need be. - CT angio negative for PE but showed b/l ground glass opacities. 2. Syncopal episode: - Patient on telemetry and no reported events overnight. - CT head negative. EKG unremarkable. 3. DVT prophylaxis: - Lovenox 40 mg subcut qd.
[2020-06-23] MEDS: Pantoprazole 40 MG Tab.CR PO SCH (09:08)
[2020-06-23] MEDS: Dexamethasone 4 MG Tab PO SCH (09:08)
[2020-06-23] MEDS: REMDESIVIR 100 MG in Sodium Chloride 0.9% 100 ML IV SCH (13:54)
--- NOTE | 2020-06-23 17:41 | PCM.DCSUM1 ---
Discharge Summary - Discharge Data Discharge Date: 06/23/20 Discharge Disposition: Home, Self-Care 01 Condition: Stable - Referral to Home Health Primary Care Physician: Paul Farooq MD - Discharge Diagnosis/Problem(s) (1) COVID-19 SNOMED Code(s): 063983012 ICD Code: U07.1 - COVID-19 Status: Acute Current Visit: Yes (2) Syncope SNOMED Code(s): 670330149 ICD Code: R55 - SYNCOPE AND COLLAPSE Status: Acute Current Visit: Yes Qualifiers: Syncope type: unspecified Qualified Code(s): R55 - Syncope and collapse - Patient Instructions Diet: Usual Diet as Tolerated Activity: As Tolerated Notify Provider of: Fever, Increased Pain, Swelling and Redness, Drainage, Nausea and/or Vomiting Other/Special Instructions: worsening shortness of breath or chest pain - Discharge Plan *PRESCRIPTION DRUG MONITORING PROGRAM REVIEWED*: Not Applicable *COPY OF PRESCRIPTION DRUG MONITORING REPORT IN PATIENT MANJU: Not Applicable Prescriptions/Med Rec: Albuterol/Ipratropium [Combivent Respimat] 4 gm IH Q4H PRN #1 inhaler PRN Reason: Shortness Of Breath dexAMETHasone [Dexamethasone] 6 mg PO DAILY 6 Days #18 tablet Pantoprazole [ProTONIX] 40 mg PO DAILY 6 Days #6 tab.cr Benzonatate [Tessalon Perle] 100 mg PO TID PRN 3 Days #9 capsule PRN Reason: Cough Home Medications: Home Meds Albuterol/Ipratropium [Combivent Respimat] 4 gm IH Q4H PRN #1 inhaler 06/23/20 [Rx] Benzonatate [Tessalon Perle] 100 mg PO TID PRN 3 Days #9 capsule 06/23/20 [Rx] Pantoprazole [ProTONIX] 40 mg PO DAILY 6 Days #6 tab.cr 06/23/20 [Rx] dexAMETHasone [Dexamethasone] 6 mg PO DAILY 6 Days #18 tablet 06/23/20 [Rx] Oxygen Therapy Mode: Room Air Forms: ED Department Discharge Referrals: Paul Farooq MD [Primary Care Provider] - 07/04/20 12:30 pm - Patient Data Vitals - Most Recent: Last Vital Signs Temp 36.6 C 06/23/20 15:58 Pulse 63 06/23/20 15:58 Resp 18 11/05/20 15:58 BP 117/62 06/23/20 15:58 Pulse Ox 92 L 06/23/20 15:58 Weight - Most Recent: 130.997 kg I&O - Last 24 hours: Intake & Output 06/23/20 06/23/20 06/23/20 06:59 14:59 22:59 Intake Total 800 1140 Output Total 600 900 Balance 200 240 Lab Results - Last 24 hrs: Laboratory Results - last 24 hr 06/23/20 06/23/20 Range/Units 06:18 06:18 WBC 6.86 (4.0-11.0) K/uL RBC 4.95 (4.50-5.90) M/uL Hgb 13.9 (13.0-17.0) g/dL Hct 42.0 (38.0-50.0) % MCV 84.8 (80.0-98.0) fL MCH 28.1 (27.0-32.0) pg MCHC 33.1 (31.0-37.0) g/dL RDW Std Deviation 39.5 (28.0-62.0) fl RDW Coeff of Desi 13 (11.0-15.0) % Plt Count 273 (150-400) K/uL MPV 10.00 (7.40-12.00) fL Neut % (Auto) 75.3 (48.0-80.0) % Lymph % (Auto) 15.6 L (16.0-40.0) % [place]mer % (Auto) 9.0 (0.0-15.0) % Eos % (Auto) 0.0 (0.0-7.0) % Baso % (Auto) 0.1 (0.0-1.5) % Neut # (Auto) 5.2 (1.4-5.7) K/uL Lymph # (Auto) 1.1 (0.6-2.4) K/uL [place]mer # (Auto) 0.6 (0.0-0.8) K/uL Eos # (Auto) 0.0 (0.0-0.7) K/uL Baso # (Auto) 0.0 (0.0-0.1) K/uL Nucleated RBC % 0.0 /100WBC Nucleated RBCs # 0 K/uL Sodium 134 L (136-148) mmol/L Potassium 3.9 (3.5-5.1) mmol/L Chloride 100 (98-107) mmol/L Carbon Dioxide 25.2 (21.0-32.0) mmol/L BUN 16 (7.0-18.0) mg/dL Creatinine 1.0 (0.8-1.3) mg/dL Est Cr Clr Drug Dosing 114.86 mL/min Estimated GFR (MDRD) > 60.0 ml/min Glucose 116 H (74-106) mg/dL Calcium 8.6 (8.5-10.1) mg/dL Total Bilirubin 0.3 (0.2-1.0) mg/dL AST 36 (15-37) IU/L ALT 41 (14-63) IU/L Alkaline Phosphatase 55 (46-116) U/L Total Protein 7.0 (6.4-8.2) g/dL Albumin 3.0 L (3.4-5.0) g/dL Globulin 4.0 (2.6-4.0) g/dL Albumin/Globulin Ratio 0.8 L (0.9-1.6) Med Orders - Current: Current Medications Acetaminophen (Tylenol) 650 mg PO Q4H PRN PRN Reason: Fever Last Admin: 06/20/20 17:50 Dose: 650 mg Documented by: Albuterol/Ipratropium (Combivent Respimat) 0 gm INH Q6H PRN PRN Reason: Dyspnea Last Admin: 06/22/20 22:34 Dose: 1 puff Documented by: Benzonatate (Tessalon Perles) 100 mg PO Q6H PRN PRN Reason: Cough Last Admin: 06/23/20 04:09 Dose: 100 mg Documented by: Dexamethasone (Dexamethasone) 6 mg PO DAILY [facility] Last Admin: 06/23/20 09:08 Dose: 6 mg Documented by: Enoxaparin Sodium (Lovenox) 40 mg SUBCUT Q24H [facility] Last Admin: 06/23/20 04:08 Dose: 40 mg Documented by: Guaifenesin (Mucus Relief) 400 mg PO Q4H PRN PRN Reason: Cough Last Admin: 06/22/20 22:34 Dose: 400 mg Documented by: Remdesivir 100 mg/ Sodium (Chloride) 100 mls @ 100 mls/hr IV Q24H [facility] Stop: 06/24/20 14:44 Last Admin: 06/23/20 13:54 Dose: 100 mls/hr Documented by: Pantoprazole Sodium (Protonix) 40 mg PO DAILY [facility] Last Admin: 06/23/20 09:08 Dose: 40 mg Documented by: Sodium Chloride (Saline Flush) 10 ml FLUSH ASDIRECTED PRN PRN Reason: IV patency Last Admin: 06/19/20 23:14 Dose: 10 ml Documented by: Discontinued Medications Acetaminophen (Tylenol Extra Strength) 1,000 mg PO ONETIME ONE Stop: 06/19/20 18:02 Last Admin: 06/19/20 18:12 Dose: 1,000 mg Documented by: Acetaminophen (Tylenol) 650 mg PO Q6H PRN PRN Reason: Fever Last Admin: 06/20/20 04:42 Dose: 650 mg Documented by: Sodium Chloride (Normal Saline) 1,000 mls @ 999 mls/hr IV STAT ONE Stop: 06/19/20 18:40 Last Admin: 06/19/20 18:14 Dose: 999 mls/hr Documented by: Sodium Chloride (Normal Saline) 1,000 mls @ 125 mls/hr IV ASDIRECTED [facility] Last Admin: 06/20/20 04:43 Dose: 125 mls/hr Documented by: Remdesivir 200 mg/ Sodium (Chloride) 250 mls @ 250 mls/hr IV ONETIME ONE Stop: 06/20/20 13:42 Last Admin: 06/20/20 15:11 Dose: 250 mls/hr Documented by: Iopamidol (Isovue Multipack-370 (76%)) 100 ml IVPUSH ONETIME ONE Stop: 06/20/20 13:05 Last Admin: 06/20/20 13:04 Dose: 100 ml Documented by: Meclizine HCl (Antivert) 25 mg PO ONETIME ONE Stop: 06/19/20 18:02 Last Admin: 06/19/20 18:12 Dose: 25 mg Documented by:
[2020-06-23] MEDS: Albuterol/Ipratropium 4 GM Inhalation Spray INH PRN (19:53)
[2020-06-24] MEDS: Enoxaparin 40 MG/0.4 ML Syringe SUBCUT SCH (04:26)
[2020-06-24 07:05] LABS: BLOOD UREA NITROGEN,BUN 15 mg/dL (7.0-18.0); CARBON DIOXIDE,CO2 26.9 mmol/L (21.0-32.0); CHLORIDE,CL 101 mmol/L (98-107); GLUCOSE RANDOM 98 mg/dL (74-106); SODIUM,NA 136 mmol/L (136-148)
[2020-06-24] MEDS: Dexamethasone 4 MG Tab PO SCH (09:59)
[2020-06-24] MEDS: Pantoprazole 40 MG Tab.CR PO SCH (10:00)
[2020-06-24] MEDS: Benzonatate 100 MG Cap PO PRN (11:08)
--- NOTE | 2020-06-24 11:19 | PCM.DCSUM1 ---
Discharge Summary - Hospital Course Free Text/Narrative:: 35-year-old male admitted for acute hypoxic respiratory failure secondary to COVID-19 and syncopal episode. Patient reports no significant PMH. He was started on supplemental oxygen, combivent, dexamethasone, lovenox, and remdesivir. CT angio was negative for PE but showed b/l ground-glass opacities. CT head negative. EKG unremarkable. No reported events on telemetry or any syncopal episodes throughout hospital stay. Patient was successfully weaned off of oxygen by day of discharge. He was discharged in stable condition with scripts for dexamethasone, PPI, Combivent and Tessalon pearles. Advised to continue self-quarantine for 20 days from day of symptom onset. Advised to follow-up with PCP. - Discharge Data Discharge Date: 06/24/20 Discharge Disposition: Home, Self-Care 01 Condition: Stable - Referral to Home Health Primary Care Physician: Paul Farooq MD - Discharge Diagnosis/Problem(s) (1) COVID-19 SNOMED Code(s): 934145427 ICD Code: U07.1 - COVID-19 Status: Acute (2) Syncope SNOMED Code(s): 900120143 ICD Code: R55 - SYNCOPE AND COLLAPSE Status: Acute Qualifiers: Syncope type: unspecified Qualified Code(s): R55 - Syncope and collapse - Patient Instructions Diet: Usual Diet as Tolerated Activity: As Tolerated Notify Provider of: Fever, Increased Pain, Swelling and Redness, Drainage, Nausea and/or Vomiting Other/Special Instructions: worsening shortness of breath or chest pain - Discharge Plan *PRESCRIPTION DRUG MONITORING PROGRAM REVIEWED*: Not Applicable *COPY OF PRESCRIPTION DRUG MONITORING REPORT IN PATIENT MANJU: Not Applicable Prescriptions/Med Rec: Albuterol/Ipratropium [Combivent Respimat] 4 gm IH Q4H PRN #1 inhaler PRN Reason: Shortness Of Breath dexAMETHasone [Dexamethasone] 6 mg PO DAILY 5 Days #15 tablet Pantoprazole [ProTONIX] 40 mg PO DAILY 6 Days #6 tab.cr Benzonatate [Tessalon Perle] 100 mg PO TID PRN 3 Days #9 capsule PRN Reason: Cough Home Medications: Home Meds Albuterol/Ipratropium [Combivent Respimat] 4 gm IH Q4H PRN #1 inhaler 06/23/20 [Rx] Benzonatate [Tessalon Perle] 100 mg PO TID PRN 3 Days #9 capsule 06/23/20 [Rx] Pantoprazole [ProTONIX] 40 mg PO DAILY 6 Days #6 tab.cr 06/23/20 [Rx] dexAMETHasone [Dexamethasone] 6 mg PO DAILY 5 Days #15 tablet 06/24/20 [Rx] Oxygen Therapy Mode: Room Air Patient Handouts: Albuterol; Ipratropium respiratory inhalation spray (Combivent Respimat), COVID-19: How to Protect Yourself and Others - CDC, Pantoprazole tablets, Coronavirus Information 11/02/19, Dexamethasone tablets, Syncope, [id number], Benzonatate capsules, Prevent the Spread of COVID-19 if You Are Sick - [facility] Referrals: Paul Farooq MD [Primary Care Provider] - 07/04/20 12:30 pm (Please arrive 15mins early, bring ID, insurance info and own mask.) - Discharge Summary/Plan Comment DC Time >30 min.: No - Patient Data Vitals - Most Recent: Last Vital Signs Temp 36.6 C 06/24/20 11:06 Pulse 86 06/24/20 11:06 Resp 18 06/24/20 11:06 BP 102/57 L 06/24/20 11:06 Pulse Ox 90 L 06/24/20 11:06 Weight - Most Recent: 130.997 kg I&O - Last 24 hours: Intake & Output 06/23/20 06/24/20 06/24/20 22:59 06:59 14:59 Intake Total 1140 700 Output Total 900 700 Balance 240 0 Lab Results - Last 24 hrs: Laboratory Results - last 24 hr 06/24/20 06/24/20 Range/Units 06:32 06:32 WBC 9.65 (4.0-11.0) K/uL RBC 5.07 (4.50-5.90) M/uL Hgb 14.1 (13.0-17.0) g/dL Hct 42.9 (38.0-50.0) % MCV 84.6 (80.0-98.0) fL MCH 27.8 (27.0-32.0) pg MCHC 32.9 (31.0-37.0) g/dL RDW Std Deviation 38.9 (28.0-62.0) fl RDW Coeff of Desi 13 (11.0-15.0) % Plt Count 329 (150-400) K/uL MPV 9.90 (7.40-12.00) fL Neut % (Auto) 76.2 (48.0-80.0) % Lymph % (Auto) 14.7 L (16.0-40.0) % [place]son % (Auto) 8.9 (0.0-15.0) % Eos % (Auto) 0.0 (0.0-7.0) % Baso % (Auto) 0.2 (0.0-1.5) % Neut # (Auto) 7.4 H (1.4-5.7) K/uL Lymph # (Auto) 1.4 (0.6-2.4) K/uL [place]son # (Auto) 0.9 H (0.0-0.8) K/uL Eos # (Auto) 0.0 (0.0-0.7) K/uL Baso # (Auto) 0.0 (0.0-0.1) K/uL Nucleated RBC % 0.0 /100WBC Nucleated RBCs # 0 K/uL Sodium 136 (136-148) mmol/L Potassium 4.0 (3.5-5.1) mmol/L Chloride 101 (98-107) mmol/L Carbon Dioxide 26.9 (21.0-32.0) mmol/L BUN 15 (7.0-18.0) mg/dL Creatinine 1.0 (0.8-1.3) mg/dL Est Cr Clr Drug Dosing 114.86 mL/min Estimated GFR (MDRD) > 60.0 ml/min Glucose 98 (74-106) mg/dL Calcium 8.6 (8.5-10.1) mg/dL Total Bilirubin 0.4 (0.2-1.0) mg/dL AST 33 (15-37) IU/L ALT 34 (14-63) IU/L Alkaline Phosphatase 51 (46-116) U/L Total Protein 6.8 (6.4-8.2) g/dL Albumin 2.8 L (3.4-5.0) g/dL Globulin 4.0 (2.6-4.0) g/dL Albumin/Globulin Ratio 0.7 L (0.9-1.6) Med Orders - Current: Current Medications Acetaminophen (Tylenol) 650 mg PO Q4H PRN PRN Reason: Fever Last Admin: 06/20/20 17:50 Dose: 650 mg Documented by: Albuterol/Ipratropium (Combivent Respimat) 0 gm INH Q6H PRN PRN Reason: Dyspnea Last Admin: 06/23/20 19:53 Dose: 1 puff Documented by: Benzonatate (Tessalon Perles) 100 mg PO Q6H PRN PRN Reason: Cough Last Admin: 06/24/20 11:08 Dose: 100 mg Documented by: Dexamethasone (Dexamethasone) 6 mg PO DAILY [facility] Last Admin: 06/24/20 09:59 Dose: 6 mg Documented by: Enoxaparin Sodium (Lovenox) 40 mg SUBCUT Q24H [facility] Last Admin: 06/24/20 04:26 Dose: 40 mg Documented by: Guaifenesin (Mucus Relief) 400 mg PO Q4H PRN PRN Reason: Cough Last Admin: 06/22/20 22:34 Dose: 400 mg Documented by: Remdesivir 100 mg/ Sodium (Chloride) 100 mls @ 100 mls/hr IV Q24H [facility] Stop: 06/24/20 14:44 Last Admin: 06/23/20 13:54 Dose: 100 mls/hr Documented by: Pantoprazole Sodium (Protonix) 40 mg PO DAILY [facility] Last Admin: 06/24/20 10:00 Dose: 40 mg Documented by: Sodium Chloride (Saline Flush) 10 ml FLUSH ASDIRECTED PRN PRN Reason: IV patency Last Admin: 06/19/20 23:14 Dose: 10 ml Documented by: Discontinued Medications Acetaminophen (Tylenol Extra Strength) 1,000 mg PO ONETIME ONE Stop: 06/19/20 18:02 Last Admin: 06/19/20 18:12 Dose: 1,000 mg Documented by: Acetaminophen (Tylenol) 650 mg PO Q6H PRN PRN Reason: Fever Last Admin: 06/20/20 04:42 Dose: 650 mg Documented by: Sodium Chloride (Normal Saline) 1,000 mls @ 999 mls/hr IV STAT ONE Stop: 06/19/20 18:40 Last Admin: 06/19/20 18:14 Dose: 999 mls/hr Documented by: Sodium Chloride (Normal Saline) 1,000 mls @ 125 mls/hr IV ASDIRECTED [facility] Last Admin: 06/20/20 04:43 Dose: 125 mls/hr Documented by: Remdesivir 200 mg/ Sodium (Chloride) 250 mls @ 250 mls/hr IV ONETIME ONE Stop: 06/20/20 13:42 Last Admin: 06/20/20 15:11 Dose: 250 mls/hr Documented by: Iopamidol (Isovue Multipack-370 (76%)) 100 ml IVPUSH ONETIME ONE Stop: 06/20/20 13:05 Last Admin: 06/20/20 13:04 Dose: 100 ml Documented by: Meclizine HCl (Antivert) 25 mg PO ONETIME ONE Stop: 06/19/20 18:02 Last Admin: 06/19/20 18:12 Dose: 25 mg Documented by:
== END 2020-06-24 13:00 | disposition home or self-care (01) | DRG 177 ==
LOC: MW.ED 16:38 → MW.ICU 19:38 → OBSVTOIN 06-20 13:46 → MW.MS 06-21 10:40
PROVIDERS: ADMIT Internal Medicine; ATTEND Internal Medicine
PROC: XW033E5 Introduction of Remdesivir Anti-infective into Peripheral Vein, Percutaneous Approach, New Technology Group 5 (ICD-10-PCS; principal; 2020-06-20)
PROC: 8E0ZXY6 Isolation (ICD-10-PCS; 2020-06-20)
DX: U07.1 COVID-19 (principal); J96.01 Acute respiratory failure with hypoxia; Z79.899 Other long term (current) drug therapy; E86.0 Dehydration
CPT/HCPCS: 36415; 70450; 70450-26; 71045; 71045-26; 71275; 71275-26; 80048; 80053; 81003; 83605; 84484; 85025; 85379; 86850; 86900; 86901; 87804; 93005; 93010; 96372; 99221; 99231; 99238; 99283; 99285-25; A9270-GY; G0378; J1650; J7030; J7050; J8540; Q9967; U0002